=== PATIENT | female | born 1955 | race African-American/Black ===

== ENCOUNTER 2023-11-03 12:57 | Emergency (ER) | payer OTHER ==
[~2023-11-03] VITALS: Ht 167.6 cm; Wt 88.0 kg
[2023-11-03 13:00] VITALS: O2SAT 99
[2023-11-03 14:00] LABS: BASOPHILS % 1.2 % (0.0-2.0); DIFFERENTIAL COMMENT 0; EOSINOPHILS % 0.2 % (0.0-5.0); HEMATOCRIT. 39.6 % (36.0-48.0); HEMOGLOBIN. 13.1 g/dL (12.0-16.0); LYMPHOCYTES % 15.5 % (20.0-50.0); MEAN CORPUSCULAR HEMOGLOBIN 26.4 pg (28.0-32.0); MEAN CORPUSCULAR HGB CONC 33.2 g/dL (31.0-37.0); MEAN CORPUSCULAR VOLUME 79.6 fL (81.0-99.0); MONOCYTES % 7.9 % (2.0-8.0); NEUTROPHILS % 75.2 % (40.0-76.0); PLATELET 288 x1000/uL (130-400); RED BLOOD CELL COUNT 4.97 mill/uL (4.2-5.4); RED CELL DISTRIBUTION WIDTH 14.7 % (11.6-14.6); WHITE BLOOD COUNT 7.5 x1000/uL (4.5-11.0)
[2023-11-03 14:24] LABS: CHLORIDE 104 mEq/L (98-107); POTASSIUM 3.3 mEq/L (3.5-5.1); SODIUM 139 mEq/L (136-145)
[2023-11-03 14:25] LABS: CARBON DIOXIDE 21 mEq/L (21-32)
[2023-11-03 14:26] LABS: CALCIUM 9.8 mg/dL (8.7-10.4)
[2023-11-03 14:30] LABS: CREATININE 0.8 mg/dL (0.6-1.0); GLUCOSE 105 mg/dL (70-105)
[2023-11-03 14:31] LABS: TROPONIN I HIGH SENSITIVITY 14 ng/L (3.0-34); UREA NITROGEN BLOOD 12 mg/dL (9-23)
[2023-11-03] MEDS: METOCLOPRAMIDE HCL 10MG/2ML VIAL IV ONE (14:31)
[2023-11-03] MEDS: SODIUM CHLORIDE 0.9% 1,000 ML IV ONE (14:31)
[2023-11-03] MEDS: ONDANSETRON HCL 4MG/2ML INJ IV ONE (14:32)
[2023-11-03] MEDS ORDERED: IOHEXOL-350 100 ML BOTTLE ONE ×2 (15:46→23:20)
[2023-11-03] MEDS ORDERED: MECLIZINE 25MG TABLET PO ONE (18:00)
[2023-11-03] MEDS: MORPHINE SULFATE 4 MG/ML INJ (FOR IV/IM USE) IV ONE (18:14)
[2023-11-03] MEDS ORDERED: MECLIZINE 12.5MG TABLET PO NR (18:15)
[2023-11-03 19:00] VITALS: BP 148/4; TEMP 98.2
[2023-11-03 20:16] VITALS: PULSE 61; RESP 15
== END 2023-11-03 20:10 | disposition short-term general hospital (02) ==
LOC: ER 12:57 → CANBEDREQ 11-05 22:37
DX: R42 Dizziness and giddiness (principal); R51.9 Headache, unspecified; I50.9 Heart failure, unspecified
CPT/HCPCS: 99285; 70496; 96374; 96361; 96375; 71045; 80048; 83880; 85025; 84484; 36415; 70498; 93005; 70450; Q9967; J2765; J2405; J2270; J7030; J8597